=== PATIENT | male | born 2005 | race Caucasian/White ===

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

== ENCOUNTER → 2024-03-21 14:40 | Outpatient (CLI) | payer OTHER, MEDICAID, SELFPAY ==
[2024-03-22 23:20] LABS: Rubella Antibody IgG 9.8 IU/mL (>15)
[2024-03-23 09:36] LABS: Mumps Virus IgG Antibody <9.0 AU/mL (Immune >10.9)
== END ==
PROVIDERS: Family Provider Pediatrics; PCP Family Medicine; Referring Provider Family Medicine; Visit Provider Family Medicine
DX: Z00.8 Encounter for other general examination (principal); Z02.1 Encounter for pre-employment examination
CPT/HCPCS: 36415; 86735; 86762; 86765

== ENCOUNTER → 2024-03-29 16:51 | Outpatient (CLI) | payer OTHER, SELFPAY | PROVIDERS: Family Provider Pediatrics; PCP Family Medicine; Visit Provider Physician Assistant Medical | DX: J02.9 Acute pharyngitis, unspecified (principal) | CPT/HCPCS: 87070 ==

== ENCOUNTER → 2024-04-20 14:38 | Outpatient (CLI) | payer OTHER, SELFPAY ==
[2024-04-20 16:31] LABS: Add Manual Diff / Slide Review NO; Basophils Absolute Auto 0 /uL (0-100); Basophils Percent Auto 0.4 % (0-2); Eosinophils Absolute Auto 100 /uL (0-450); Eosinophils Percent Auto 1.5 % (2-4); Hematocrit 43.8 % (41-53); Hemoglobin 14.8 g/dL (13.5-17.5); Lymphocytes Absolute Auto 1900 /uL (1100-4500); Lymphocytes Percent Auto 41.2 % (25-40); Mean Corpuscular HGB Conc 33.9 % (30-36); Mean Corpuscular Hemoglobin 30.1 PG (26-34); Mean Corpuscular Volume 88.9 fL (80-100); Monocytes Absolute Auto 200 /uL (0-900); Monocytes Percent Auto 4.4 % (3-14); Neutrophils Absolute Auto 2500 /uL (1500-7000); Neutrophils Percent Auto 52.5 % (50-75); Platelet Count 223 X10^3/uL (150-400); Red Blood Cell Count 4.92 X10^6/uL (4.5-5.9); White Blood Cell Count 4.7 X10^3/uL (4.5-11.0)
[2024-04-20 16:52] LABS: Alanine Aminotransferase 27 IU/L (<50); Albumin 4.9 g/dL (3.5-5.0); Albumin Globulin Ratio 1.7 (1.0-2.8); Alkaline Phosphatase 81 U/L (38-126); Aspartate Aminotransferase 34 IU/L (17-59); BUN Creatinine Ratio 13.9 (6-22); Bilirubin Total 0.8 mg/dL (0.2-1.3); Blood Urea Nitrogen 14 mg/dL (9-20); Calcium 9.7 mg/dL (8.4-10.2); Carbon Dioxide 27 mmol/L (22-32); Chloride 104 mmol/L (98-107); Cholesterol 123 mg/dL (140-199); Estimated Glomerular Filt Rate > 60 mL/min (>60); Globulin 2.9 g/dL (1.7-4.1); Glucose 75 mg/dL (70-100); HDL Cholesterol 42 mg/dL (40-60); HEMOLYSIS < 15 (0-50); LDL Cholesterol Calculated 72 mg/dL (<100); Potassium 4.6 mmol/L (3.4-5.1); Sodium 140 mmol/L (137-145); Total Protein 7.8 g/dL (6.3-8.2); Triglycerides 45 mg/dL (35-150)
== END ==
PROVIDERS: Family Provider Pediatrics; PCP Family Medicine; Referring Provider Family Medicine; Visit Provider Family Medicine
DX: F39 Unspecified mood [affective] disorder (principal); F64.9 Gender identity disorder, unspecified
CPT/HCPCS: 36415; 80053; 80061; 85025

== ENCOUNTER → 2024-09-14 15:07 | Outpatient (CLI) | payer OTHER, SELFPAY ==
[2024-09-14 16:05] LABS: Add Manual Diff / Slide Review NO; Basophils Absolute Auto 0 /uL (0-100); Basophils Percent Auto 0.3 % (0-2); Eosinophils Absolute Auto 0 /uL (0-450); Eosinophils Percent Auto 0.5 % (2-4); Hematocrit 41.1 % (41-53); Lymphocytes Absolute Auto 1300 /uL (1100-4500); Lymphocytes Percent Auto 20.1 % (25-40); Mean Corpuscular HGB Conc 34.1 % (30-36); Mean Corpuscular Hemoglobin 30.9 PG (26-34); Mean Corpuscular Volume 90.5 fL (80-100); Monocytes Absolute Auto 400 /uL (0-900); Monocytes Percent Auto 5.6 % (3-14); Neutrophils Absolute Auto 4700 /uL (1500-7000); Neutrophils Percent Auto 73.5 % (50-75); Platelet Count 189 X10^3/uL (150-400); Red Blood Cell Count 4.55 X10^6/uL (4.5-5.9); Red Cell Distribution Width 13.2 % (11.6-14.8); White Blood Cell Count 6.4 X10^3/uL (4.5-11.0)
[2024-09-14 16:14] LABS: Alanine Aminotransferase 22 IU/L (<50); Albumin 4.9 g/dL (3.5-5.0); Albumin Globulin Ratio 1.6 (1.0-2.8); Alkaline Phosphatase 69 U/L (38-126); Aspartate Aminotransferase 29 IU/L (17-59); BUN Creatinine Ratio 15.9 (6-22); Bilirubin Total 0.8 mg/dL (0.2-1.3); Blood Urea Nitrogen 14 mg/dL (9-20); Calcium 9.5 mg/dL (8.4-10.2); Carbon Dioxide 26 mmol/L (22-32); Chloride 102 mmol/L (98-107); Estimated Glomerular Filt Rate > 60 mL/min (>60); Glucose 83 mg/dL (70-99); HEMOLYSIS < 15 (0-50); Potassium 4.5 mmol/L (3.4-5.1); Sodium 137 mmol/L (137-145); Total Protein 7.9 g/dL (6.3-8.2)
[2024-09-20 11:09] LABS: Estrogen 694 pg/mL (56-213)
[2024-09-21 17:10] LABS: Testosterone Free 1.83 ng/dL (5.00-21.00); Testosterone Total 67.9 ng/dL (264.0-916.0)
== END ==
PROVIDERS: Family Provider Pediatrics; PCP Family Medicine; Referring Provider Family Medicine; Visit Provider Family Medicine
DX: F64.9 Gender identity disorder, unspecified (principal); F39 Unspecified mood [affective] disorder
CPT/HCPCS: 36415; 80053; 82672; 84402; 84403; 85025

== ENCOUNTER → 2024-10-23 17:06 | Outpatient (CLI) | payer OTHER, SELFPAY ==
[2024-10-23 18:53] LABS: Blood Urea Nitrogen 16 mg/dL (9-20); Calcium 9.7 mg/dL (8.4-10.2); Carbon Dioxide 26 mmol/L (22-32); Chloride 103 mmol/L (98-107); Estimated Glomerular Filt Rate > 60 mL/min (>60); Glucose 88 mg/dL (70-99); HEMOLYSIS < 15 (0-50); Potassium 4.8 mmol/L (3.4-5.1); Sodium 137 mmol/L (137-145)
[2024-10-23 19:25] LABS: Estradiol, Total 172.4 pg/mL
== END ==
PROVIDERS: Family Provider Pediatrics; PCP Family Medicine; Referring Provider Family Medicine; Visit Provider Family Medicine
DX: E34.8 Other specified endocrine disorders (principal)
CPT/HCPCS: 36415; 80048; 82670

== ENCOUNTER 2024-12-22 22:26 | Emergency (ER) | payer OTHER, SELFPAY ==
[2024-12-22 22:32] VITALS: BP 131/61; PULSE 75; RESP 18; O2SAT 98; BMI 25.1
--- NOTE | 2024-12-22 22:54 | DI.US.S_ITS ---
PROCEDURE: US SCROTUM INDICATIONS: sudden onset right testicular pain TECHNIQUE: Real-time scanning was performed of the scrotum and testicles, with image documentation. Color and pulse Doppler interrogation was performed of both testicles. COMPARISON: None. FINDINGS: Right: Testicle is normal in size at 3.9 x 1.6 x 2.4 cm, and homogenous in echotexture. Epididymis is normal in overall size and morphology. No hydrocele or varicoceles. Overlying scrotal skin is normal in thickness. Left: Testicle is normal in size at 3.7 x 1.7 x 2.2 cm, and homogeneous in echotexture. Epididymis is normal in overall size and morphology. No hydrocele or varicoceles. Overlying scrotal skin is normal in thickness. Doppler: Color and pulse Doppler demonstrate normal and symmetric arterial flow in both testicles. IMPRESSION: Unremarkable exam. Dictated by: Ritu Wilcox M.D. on 12/22/2024 at 23:57 Approved by: Ritu Wilcox M.D. on 12/22/2024 at 23:58
[2024-12-22] MEDS: KETOROLAC 30 MG/ML VIAL IM (23:08)
[2024-12-22 23:09] VITALS: BP 134/85; PULSE 74; O2SAT 98
[2024-12-22 23:18] LABS: Appearance Urine UA CLEAR; Bilirubin Urine UA NEGATIVE (NEGATIVE); Color Urine UA YELLOW; Glucose Urine UA NEGATIVE (Negative); Ketones Urine UA 1+ (NEGATIVE); Leukocyte Esterase Urine UA NEGATIVE (NEGATIVE); Nitrite Urine UA NEGATIVE (Negative); Occult Blood Urine UA NEGATIVE (Negative); Protein Urine UA NEGATIVE (Negative); Specific Gravity Urine UA 1.025 (1.000-1.035); Urobilinogen Urine UA 0.2 E.U./dL (0.2); pH Urine UA 6.0 (4.5-8.0)
--- NOTE | 2024-12-22 23:26 | ED_ITS ---
HPI - Male Genitourinary General Chief complaint: Urogenital-Male Stated complaint: Possible testicular torsion, pain in testes Time Seen by Provider: 12/22/24 23:00 Source: patient Mode of arrival: Ambulatory History of Present Illness HPI Narrative: 19-year-old male with chart history of gender dysphoria, taking estradiol and spironolactone, complains of nontraumatic right testicular pain onset 2 hours prior to arrival. History of hypospadias without surgical correction, denies history of urinary tract infections. No dysuria or frequency of urination. No penile discharge. Denies history of STDs, chlamydia, gonorrhea infections. Denies presence of genital skin lesions pustules papules blisters. Related Data Home Medications ?Medication ?Instructions ?Recorded ?Confirmed hydrocortisone 2.5 % topical cream applic topical BID PRN 11/16/24 11/16/24 Previous Rx's ?Medication ?Instructions ?Recorded estradiol 1 mg tablet 1 mg PO DAILY #60 tabs 12/04 spironolactone 100 mg tablet 100 mg PO DAILY #30 tabs 12/04/24 Allergies Allergy/AdvReac Type Severity Reaction Status Date / Time No Known Drug Allergies Allergy Verified 11/16/24 14:49 Patient History Medical History Eczema Social History Smoking Status: Never smoker Smoking Status: Never smoker Exam Narrative Exam Narrative: GENERAL: Well-developed patient, in mild distress. HEAD: Atraumatic. Normocephalic. EYES: Pupils equal round and reactive. Extraocular motions intact. No scleral icterus. No injection or drainage. ENT: Nose without bleeding, purulent drainage. Throat without erythema, tonsillar hypertrophy or exudate. Airway patent. NECK: Trachea midline. Non tender CARDIOVASCULAR: Regular rate and rhythm without murmurs, gallops, or rubs. RESPIRATORY: Clear to auscultation. Breath sounds equal bilaterally. No wheezes, rales, or rhonchi. GASTROINTESTINAL: Abdomen soft, non-tender, nondistended. EXTREMITIES: No edema or joint tenderness. BACK: Nontender without deformity or crepitance. No flank tenderness. NEURO: AOx3. Motor functions grossly nonfocal. SKIN: No rash or erythema of visible areas Initial Vital Signs Initial Vital Signs: Vital Signs Pulse Rate 75 12/22/24 22:32 Respiratory Rate 18 12/22/24 22:32 Blood Pressure 131/61 12/22/24 22:32 Pulse Oximetry 98 12/22/24 22:32 Oxygen Delivery Method Room Air 12/22/24 22:32 Course Orders Ordered: ED Orders 12/22/24 22:54 US scrotum Stat 12/22/24 23:08 Chlamydia Gonorrhea PCR -URINE Stat Urinalysis and Microscopic Stat Discontinued Medications Ketorolac Tromethamine (Ketorolac 30 Mg/Ml Vial) 30 mg IM NOW ONE Stop: 12/22/24 23:01 Last Admin: 12/22/24 23:08 Dose: 30 mg Documented By: LIBORIO Vital Signs Vital signs: Vital Signs - 8 hr 12/22/24 22:32 12/22/24 23:09 12/22/24 23:09 Pulse Rate 75 74 Respiratory Rate 18 Blood Pressure 131/61 134/85 Pulse Oximetry 98 98 Oxygen Delivery Method Room Air 12/22/24 23:30 12/23/24 00:21 Pulse Rate 77 Respiratory Rate Blood Pressure Pulse Oximetry 99 Oxygen Delivery Method Room Air MDM - Male Genitourinary Lab Data Attestation: I reviewed the patient's lab results. Lab results narrative: Urinalysis with some contamination epithelial cells, not obviously infected. Urine GC chlamydia Labs: Lab Results 12/22/24 Range/Units 23:08 Urine Color Yellow Urine Appearance Clear Urine pH 6.0 (4.5-8.0) Ur Specific Phelps 1.025 (1.000-1.035) Urine Protein Negative (Negative) Urine Glucose (UA) Negative (Negative) g/dL Urine Ketones 1+ H (NEGATIVE) Urine Occult Blood Negative (Negative) Urine Nitrate Negative (Negative) Urine Bilirubin Negative (NEGATIVE) Urine Urobilinogen 0.2 (0.2) E.U./dL Ur Leukocyte Esterase Negative (NEGATIVE) Urine RBC 0-1/hpf (0-5/HPF) Urine WBC 0-1/hpf (0-5/HPF) Ur Squamous Epith Cells 5-10 /hpf H (0-5/HPF) Urine Bacteria Occasional (0-1) (None) Urine Mucus 1+ H (Negative) Ur Culture Indicated? Cult not indicated Vol Urine Centrifuged 10ml (spun) Ur Chlamydia DNA (PCR) Not detected N gonorrhoeae DNA (PCR) Not detected MDM Narrative Medical decision making narrative: 19-year-old male with history of gender dysphoria arm oral estrogen and spironolactone, complains of nontraumatic right testicular pain for the last 2 hours. Ultrasound scrotum ordered at triage. Urinalysis pending. History of hypospadias, no surgical correction, no prior UTIs, denies STDs prior. IM Toradol, symptoms improved. Urinalysis somewhat contaminated but not obviously infected. Urine GC chlamydia from that sample sent, and was negative. Ultrasound scrotum showed no acute changes, see radiology report. Orchodynia unclear etiology, no obvious mass or tumor, consider occult/unreported local trauma. Advised snug fitting underwear brace for support. Follow up with Urology if not improving in the next couple of days, contact information given for local urology office. Advised [id number] Tylenol/Motrin oral analgesic as needed. Return precautions discussed. Discharged home. Discharge Plan Departure Patient Disposition: Home Clinical Impression: Orchidodynia Instructions: DI for Testicular Pain Activity Restrictions/Additional Instructions: Right testicular pain of unclear cause. Ultrasound tonight did not show problems with any blood flow to the testis at this time, nor did it seemed to show an inflammatory changes in the testis or the adjacent spermatic cord region, nor were there is mentioned of any testicular masses or cancerous changes. On examination did not seem to have any skin changes or cellulitis. No known trauma. Regular urinalysis negative. Urine chlamydia/gonorrhea are still pending, we will contact you if positive. Consider tighter fitting underwear that are supportive of the scrotum. Avoid bicycle/motorcycle riding and horseback riding and local scrotal trauma. You received intramuscular injection of Toradol today, which seemed to help your pain. Consider use of [id number] Tylenol and or Motrin as needed for pain control. Consider follow up with local urologist if symptoms not improved by Wednesday, office contact information provided. Return earlier to this/nearest emergency depart ment for any change worsening symptoms or any concerns prior. Prescriptions: No Action hydrocortisone 2.5 % cream topical BID PRN spironolactone 100 mg tablet 100 mg PO DAILY Qty: 30 0RF estradiol 1 mg tablet 1 mg PO DAILY Qty: 60 0RF Referrals: Parminder Sheridan DO [Physician, Urology] Ama Romero MD [Primary Care Provider, [facility]] Stand Alone Forms: Patient Portal/API
[2024-12-22 23:30] VITALS: PULSE 77; O2SAT 99
[2024-12-22 23:30] LABS: Culture Indicated Urine Cult Not Indicated
[2024-12-23 01:17] LABS: Urine N gonorrhoeae NOT DETECTED
[2024-12-23 01:21] LABS: Urine Chlamydia NOT DETECTED
== END 2024-12-23 00:23 | disposition home or self-care (01) ==
PROVIDERS: Emergency Provider Emergency Medicine; PCP Family Medicine
DX: N50.811 Right testicular pain (principal)
CPT/HCPCS: 76870; 81001; 87491; 87591; 93975; 96372; 99283; J1885

== ENCOUNTER → 2025-02-16 15:30 | Outpatient (CLI) | payer OTHER, SELFPAY ==
[2025-02-16 16:44] LABS: Alanine Aminotransferase 27 IU/L (<50); Albumin 4.7 g/dL (3.5-5.0); Albumin Globulin Ratio 1.6 (1.0-2.8); Alkaline Phosphatase 78 U/L (38-126); Blood Urea Nitrogen 17 mg/dL (9-20); Calcium 9.3 mg/dL (8.4-10.2); Carbon Dioxide 24 mmol/L (22-32); Chloride 102 mmol/L (98-107); Estimated Glomerular Filt Rate > 60 mL/min (>60); Globulin 3.0 g/dL (1.7-4.1); Glucose 89 mg/dL (70-99); HEMOLYSIS < 15 (0-50); Potassium 4.1 mmol/L (3.4-5.1); Sodium 136 mmol/L (137-145); Total Protein 7.7 g/dL (6.3-8.2)
[2025-02-16 17:16] LABS: Estradiol, Total 341.1 pg/mL
== END ==
PROVIDERS: PCP Family Medicine; Referring Provider Family Medicine; Visit Provider Family Medicine
DX: F64.9 Gender identity disorder, unspecified (principal)
CPT/HCPCS: 36415; 80053; 82670; 84402; 84403

== ENCOUNTER 2025-04-02 18:48 | Emergency (ER) | payer SELFPAY ==
--- OUTSIDE RECORDS SUMMARY | 2025-04-02 18:53 | XMS_ITS ---
Author Organization [facility] Address [address] [place] [address] Care Team Providers Care Corporate Human Resources Manager Name Role Phone Ama Villalobos Primary Care Provider Unavail able Auto Immune Status:Enrolled (Active) Start date:09/15/2024 Enrollment date:12/14/2024 Current support & services provided:Standard (PCC/MOB) Distribution + Self- Service Refills Linked medications:abrocitinib (Active) Linked problems:Atopic dermatitis (Active) Overview Abrocitinib (Cibinqo) Continued Care and Services Coordination
[2025-04-02 19:06] VITALS: BP 108/76; PULSE 95; RESP 16; TEMP 35.9; O2SAT 97; BMI 25.7
--- NOTE | 2025-04-02 19:36 | PC.NURSE ---
TRASH MAN note: Patient placed clothes in a plastic patient belongings bag. Patient's belongings placed in cabinet near social service liaison's desk. Patient gave a urine specimen and was sent to lab.
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
[2025-04-02 20:15] LABS: Add Manual Diff / Slide Review NO; Hematocrit 41.9 % (41-53); Hemoglobin 14.3 g/dL (13.5-17.5); Lymphocytes Absolute Auto 1800 /uL (1100-4500); Mean Corpuscular HGB Conc 34.0 % (30-36); Mean Corpuscular Hemoglobin 30.7 PG (26-34); Mean Corpuscular Volume 90.3 fL (80-100); Platelet Count 153 X10^3/uL (150-400)
[2025-04-02 20:28] LABS: Appearance Urine UA CLEAR; Bilirubin Urine UA NEGATIVE (NEGATIVE); Color Urine UA YELLOW; Glucose Urine UA NEGATIVE (Negative); Ketones Urine UA NEGATIVE (NEGATIVE); Leukocyte Esterase Urine UA NEGATIVE (NEGATIVE); Nitrite Urine UA NEGATIVE (Negative); Occult Blood Urine UA TRACE-INTACT (Negative); Protein Urine UA NEGATIVE (Negative); Specific Gravity Urine UA >=1.030 (1.000-1.035); Urobilinogen Urine UA 0.2 E.U./dL (0.2); pH Urine UA 6.0 (4.5-8.0)
[2025-04-02 20:31] LABS: Acetaminophen < 10 ug/mL (10-30); Alanine Aminotransferase 25 IU/L (<50); Albumin 5.0 g/dL (3.5-5.0); Albumin Globulin Ratio 1.5 (1.0-2.8); Alkaline Phosphatase 61 U/L (38-126); Blood Urea Nitrogen 11 mg/dL (9-20); Calcium 9.5 mg/dL (8.4-10.2); Carbon Dioxide 24 mmol/L (22-32); Chloride 107 mmol/L (98-107); Estimated Glomerular Filt Rate > 60 mL/min (>60); Ethanol (ETOH) < 10 mg/dL (<10); Globulin 3.4 g/dL (1.7-4.1); Glucose 94 mg/dL (70-99); HEMOLYSIS < 15 (0-50); Potassium 4.0 mmol/L (3.4-5.1); Salicylate < 1.0 mg/dL (<20); Sodium 142 mmol/L (137-145); Total Protein 8.4 g/dL (6.3-8.2)
[2025-04-02 20:32] LABS: UR Morphine/Opiate cutoff 300 Negative (Negative); Ur Specific Gravity Normal (Normal); Urine MDMA Negative (Negative); Urine Methamphetamines Negative (Negative); Urine Tetrahydrocannabinol Negative (Negative); Urine Tricyclic Antidepressant Negative (Negative)
--- NOTE | 2025-04-02 20:33 | EKG_ITS ---
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
[2025-04-02 21:02] LABS: TSH w/ Reflex to FT4 1.64 uIU/mL (0.47-4.68)
[2025-04-02 21:05] LABS: Influenza A - CEPHEID Flu A NEGATIVE (NEGATIVE); Influenza B - CEPHEID Flu B NEGATIVE (NEGATIVE)
[2025-04-02 21:06] LABS: COVID-19 CEPHEID 4-PLEX PCR Negative (Negative)
--- NOTE | 2025-04-02 22:09 | PC.NURSE ---
Pt is wanting inpatient treatment. Here voluntarily. ED registration was unable to find and insurance coverage that the patient has that is active. Has an old plan but would need to call to get it reactivated. I explained this to the patient and explained the option of self pay. I spoke to [facility] and Spoke with Radha. I explained to Radha that the patient was voluntary but doesn't have insurance and was seeing if placement would still be possible. She said that if we were able to start a 5-day authorization with Medicaid and if not it would cost him about 1,500 a day that they would be able to see if he would qualify and take him. I spoke with ED registration and they said that we are unable to do that. Pt expressed that he is positive that he has insurance with [employer]. I called [facility] and they were able to confirm that they see he has a plan with them, but it wouldn't be active until April 12. I told the patient this information and that because of this [facility] would only be able to do self pay and that is about $1,500 a day according to Radha at [facility]. Patient said he wanted to think about it all and let us know what he was going to do. RN Nithya martinez
[2025-04-03 06:09] VITALS: BP 120/68; PULSE 86; RESP 18; O2SAT 100
--- NOTE | 2025-04-03 10:26 | PC.NURSE ---
Pt has been seen and evaluated by provider. Denies SI/HI at time of discharge. States feeling comfortable w/safety plan discussed by social work and provided resources. Pt discharging home w/friend.
[2025-04-03 10:27] VITALS: BP 143/97; PULSE 87; RESP 18; O2SAT 94
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
--- NOTE | 2025-04-03 14:17 | CM.SWNOTE ---
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 Burns would like to see patient on 04/06 regardless of insurance status on that date. Onna to call patient regarding PCP follow up on 04/06. MO SosaSW
== END 2025-04-03 10:28 | disposition home or self-care (01) ==
PROVIDERS: Family Medicine; Emergency Provider Emergency Medicine; PCP Family Medicine
DX: R45.851 Suicidal ideations (principal)
CPT/HCPCS: 36415; 80053; 80305; 80320; 80329; 81003; 84443; 85025; 87637; 93005; 93010; 99283; G0480